=== PATIENT | female | born 1985 ===

== ENCOUNTER 2019-02-22 08:01 | Emergency (ER) | payer OTHER ==
[~2019-02-22] VITALS: Ht 157.5 cm; Wt 89.4 kg
== END 2019-02-22 12:29 | disposition home or self-care (01) ==
LOC: ER 08:01
DX: B34.8 Other viral infections of unspecified site (principal)

== ENCOUNTER 2019-03-25 17:21 | Emergency (ER) | payer OTHER ==
[~2019-03-25] VITALS: Ht 162.6 cm; Wt 82.6 kg
== END 2019-03-25 20:13 | disposition home or self-care (01) ==
LOC: ER 17:21
DX: S90.812A Abrasion, left foot, initial encounter (principal); S90.415A Abrasion, left lesser toe(s), initial encounter; W45.8XXA Other foreign body or object entering through skin, initial encounter; Y93.89 Activity, other specified; Y92.832 Beach as the place of occurrence of the external cause; Y99.8 Other external cause status